=== PATIENT | female | born 1970 | race Two or more races ===

== ENCOUNTER 2020-11-15 20:48 | Inpatient (IN) ==
[2020-11-15] MEDS ORDERED: SODIUM CHLORIDE 0.9% 1,000 ML IV STA (21:31)
[2020-11-15] MEDS ORDERED: ENOXAPARIN 100 MG/ML SYRINGE SUBCUT STA (21:51)
[2020-11-15] MEDS ORDERED: ENOXAPARIN 120 MG/0.8 ML SYRINGE SUBCUT STA (21:55)
[2020-11-15] MEDS ORDERED: dilTIAZem Drip 125 MG/125 ML PREMIX IV SCH ×2 (22:00→23:00)
[2020-11-15 22:08] LABS: Basophils % 0.3 % (0.0-0.8); Hematocrit 46.6 VOL% (35.7-47.0); Hemoglobin 17.6 GM/DL (12.0-16.0); Immature Granulocytes % 0.8 %; Immature Granulocytes Absolute 0.08 #; Lymphocytes # 0.6 10*3/uL (1.4-4.0); Lymphocytes % 6.1 % (21.3-54.2); Mean Corpuscular HGB Conc 37.8 GM/DL (32-36); Mean Corpuscular Volume 77.8 FL (87-102); Mean Platelet Volume 11.4 FL (9.6-12.0); Monocytes % 5.9 % (1.7-12.7); NRBC # 0.02 10*3/uL; Neutrophils % 86.9 % (38.7-73.9); Platelet Count 225 T/CUMM (130-400); Red Blood Count 5.99 MC/CUMM (3.8-5.5); Red Cell Distribution Width 14.7 % (9.3-17.3); White Blood Count 9.8 T/CUMM (4-12)
[2020-11-15 22:15] LABS: INR 1.4; PT Patient Result 14.7 SECS (9.8-11.9)
[2020-11-15 22:19] LABS: ABG Base Excess -3.6 MMOL/L (-2.5-2.5); ABG PCO2 32.3 MM HG (35-48); ABG PH 7.409 (7.35-7.45); Allen Test Positive; Pt O2 Delivery Device Room Air
[2020-11-15 22:21] LABS: ABG Oxygen Saturation 95.9 % (95-100)
[2020-11-15 22:24] LABS: Bilirubin,Urine Negative (Negative); Blood, Urine Large mg/dL (Negative); Glucose,Urine (UA) >=500 mg/dL (Negative); Ketones,Urine Negative (Negative); Mucus,Urine Few /LPF (Occasional); Nitrite,Urine Negative (Negative); Protein,Urine 100 MG/DL; RBC,Urine 24 /HPF (0-4); Squamous Epithelial Cell,Urine Occasional /HPF (0-10); Urine Appearance CLOUDY (Clear); Urine Color Yellow (Yellow); Urine Specific Gravity 1.017 (1.001-1.035); WBC,Urine 1017 /HPF (0-6)
[2020-11-15] MEDS ORDERED: DEXTROSE 50% 25 GM/50 ML VIAL IV PRN ×3 (22:31→22:39)
[2020-11-15] MEDS ORDERED: GLUCAGON 1 MG VIAL IM PRN ×2 (22:31)
[2020-11-15 22:36] LABS: Alanine Aminotransferase 38 U/L (13-56); Albumin 1.5 G/DL (3.4-5.0); Alkaline Phosphatase 137 U/L (45-117); Aspartate Amino Transferase 116 U/L (0-37); Blood Urea Nitrogen 131 MG/DL (7-18); Calcium 8.2 MG/DL (8.5-10.1); Estimated Glom Filtration Rate 14 ML/MIN; Osmolality,Calculated 365.3 MOS/KG (273-304); Total Protein 7.2 G/DL (6.4-8.3)
[2020-11-15] MEDS ORDERED: SODIUM BICARB INJ 100 MEQ in STERILE WATER INJ 400 ML IV PRN (22:39)
[2020-11-15] MEDS ORDERED: SODIUM CHLORIDE 0.9% 1,000 ML IV ONE (22:39)
[2020-11-15] MEDS ORDERED: SODIUM PHOSPHATE INJ 28.3 MMOL in SODIUM CHLORIDE 0.9% 250 ML IV PRN (22:39)
[2020-11-15] MEDS ORDERED: MAGNESIUM SULF RIDER 2 GM in PREMIX 1 EACH IV PRN (22:39)
[2020-11-15] MEDS ORDERED: POTASSIUM CHLORIDE RIDER 10 MEQ in PREMIX 1 EACH IV PRN (22:39)
[2020-11-15] MEDS ORDERED: MAGNESIUM SULF RIDER 4 GM in PREMIX 1 EACH IV PRN (22:39)
[2020-11-15] MEDS ORDERED: INSULIN REGULAR 100 UNIT/ML IV ONE (22:39)
[2020-11-15] MEDS: INSULIN REGULAR DRIP 100 ML IV PRN (22:45)
[2020-11-15 22:46] LABS: Band Neutrophils 1 % (0-10); Lymphocytes 8 % (20-55); Nucleated Red Blood Cells 1 (0-5); Platelet Estimate Normal; Segmented Neutrophils 88 % (50-85); Total Cells Counted 100
[2020-11-15 22:47] LABS: Target Cells 2+
[2020-11-15 22:48] LABS: Microcytosis 2+; Polychromasia Slight
[2020-11-15 22:53] LABS: Glucose 867 MG/DL (74-106)
[2020-11-15 22:55] LABS: Barbiturates Screen,Urine Negative (Negative); Benzodiazepines Screen,Urine Negative (Negative); Cannabinoid Screen,Urine Negative (Negative); Opiate Screen,Urine Negative (Negative); Phencyclidine Screen,Urine Negative (Negative)
[2020-11-15] MEDS ORDERED: INSULIN REGULAR DRIP 100 ML IV SCH (23:00)
[2020-11-15] MEDS: cefTRIAXone 1,000 MG in SYRINGE 1 EACH IV SCH (23:50)
[2020-11-16] MEDS: SODIUM CHLORIDE 0.9% 1,000 ML IV SCH ×2 (00:21→05:00)
[2020-11-16] MEDS: ALBUTEROL/IPRATROPIUM 3 ML NEB RESP TX SCH ×4 (00:23→18:56)
[2020-11-16 00:31] LABS: Calcium 7.8 MG/DL (8.5-10.1); Osmolality,Calculated 370.1 MOS/KG (273-304)
[2020-11-16] MEDS ORDERED: DIGOXIN 0.5 MG/2 ML AMP IV ONE ×2 (02:53→09:00)
[2020-11-16 03:14] LABS: Calcium 7.7 MG/DL (8.5-10.1); Osmolality,Calculated 364.8 MOS/KG (273-304)
[2020-11-16] MEDS ORDERED: SODIUM CHLORIDE 0.9% 1,000 ML IV SCH (03:40)
[2020-11-16 04:16] LABS: Basophils % 0.2 % (0.0-0.8); Eosinophils % 0.1 % (0.00-10.9); Hematocrit 28.3 VOL% (35.7-47.0); Hemoglobin 10.6 GM/DL (12.0-16.0); Immature Granulocytes % 1.2 %; Immature Granulocytes Absolute 0.22 #; Lymphocytes % 5.4 % (21.3-54.2); Mean Corpuscular HGB Conc 37.5 GM/DL (32-36); Mean Corpuscular Volume 78.4 FL (87-102); Mean Platelet Volume 11.1 FL (9.6-12.0); Monocytes % 6.8 % (1.7-12.7); NRBC # 0.02 10*3/uL; Neutrophils % 86.3 % (38.7-73.9); Platelet Count 259 T/CUMM (130-400); Red Blood Count 3.61 MC/CUMM (3.8-5.5); Red Cell Distribution Width 14.4 % (9.3-17.3); White Blood Count 18.3 T/CUMM (4-12)
[2020-11-16 04:44] LABS: Calcium 7.8 MG/DL (8.5-10.1); Osmolality,Calculated 367.7 MOS/KG (273-304); Thyroid Stimulating Hormone 0.066 uIU/ml (0.358-3.74)
[2020-11-16 04:56] LABS: ABG HCO3 20.3 MMOL/L (20-26); ABG Oxygen Saturation 95.9 % (95-100); ABG PH 7.345 (7.35-7.45); ABG PO2 91.8 MM HG (80-95); ABG TCO2 18.2 MMOL/L (23-27); Allen Test Positive
[2020-11-16] MEDS: ACETAMINOPHEN 325 MG TABLET PO PRN (05:00)
[2020-11-16] MEDS ORDERED: METOPROLOL TARTRATE 5 MG/5 ML VIAL IV ONE (05:43)
[2020-11-16 06:02] LABS: Band Neutrophils 5 % (0-10); Hypochromasia 1+; Lymphocytes 5 % (20-55); Metamyelocytes 2 %; Myelocytes 1 %; Segmented Neutrophils 84 % (50-85); Target Cells 1+; Total Cells Counted 100
[2020-11-16 06:03] LABS: Microcytosis 1+; Platelet Estimate Normal
[2020-11-16 07:36] LABS: Calcium 7.6 MG/DL (8.5-10.1); Osmolality,Calculated 368.4 MOS/KG (273-304)
[2020-11-16] MEDS ORDERED: DIGOXIN 0.5 MG/2 ML AMP IV STA (08:03)
[2020-11-16] MEDS ORDERED: LACTATED RINGERS 1,000 ML IV ONE (08:11)
[2020-11-16] MEDS ORDERED: INSULIN REGULAR 100 UNIT/ML IV ONE (08:12)
[2020-11-16] MEDS ORDERED: LEVOFLOXACIN INJ 750 MG in PREMIX 1 EACH IV SCH (08:30)
[2020-11-16] MEDS: ENOXAPARIN 30 MG/0.3 ML SYRINGE SUBCUT SCH (08:45)
[2020-11-16] MEDS: PANTOPRAZOLE 40 MG TABLET PO SCH (08:45)
[2020-11-16] MEDS ORDERED: MOXIFLOXACIN 0.5% OPH SOLN 3 ML BOTTLE ONE (08:55)
[2020-11-16] MEDS ORDERED: LACTATED RINGERS 1,000 ML IV SCH (09:15)
[2020-11-16 09:48] LABS: Calcium 7.7 MG/DL (8.5-10.1); Osmolality,Calculated 369.3 MOS/KG (273-304)
[2020-11-16] MEDS: POTASSIUM CHLORIDE INJ 20 MEQ in LACTATED RINGERS 1,000 ML IV SCH (11:25)
[2020-11-16 15:40] LABS: Calcium 7.9 MG/DL (8.5-10.1); Osmolality,Calculated 348.3 MOS/KG (273-304)
[2020-11-16] MEDS ORDERED: SODIUM CHLORIDE 0.45% 1,000 ML IV SCH (15:40)
[2020-11-16] MEDS: INSULIN REGULAR DRIP 100 ML IV PRN (16:41)
[2020-11-16 19:59] LABS: Calcium 7.9 MG/DL (8.5-10.1)
[2020-11-16] MEDS ORDERED: DEXTROSE 50% 25 GM/50 ML SYRINGE IV ONE (23:30)
[2020-11-17] MEDS: ALBUTEROL/IPRATROPIUM 3 ML NEB RESP TX SCH ×4 (01:45→20:28)
[2020-11-17 05:35] LABS: Basophils % 0.1 % (0.0-0.8); Hemoglobin 10.8 GM/DL (12.0-16.0); Immature Granulocytes % 1.8 %; Immature Granulocytes Absolute 0.29 #; Mean Corpuscular HGB Conc 37.2 GM/DL (32-36); Mean Corpuscular Volume 79.7 FL (87-102); Mean Platelet Volume 11.1 FL (9.6-12.0); Neutrophils % 88.1 % (38.7-73.9); Platelet Count 212 T/CUMM (130-400); Red Blood Count 3.64 MC/CUMM (3.8-5.5); Red Cell Distribution Width 14.2 % (9.3-17.3); White Blood Count 16.4 T/CUMM (4-12)
[2020-11-17] MEDS: cefTRIAXone 1,000 MG in SYRINGE 1 EACH IV SCH ×2 (05:40→22:18)
[2020-11-17 06:20] LABS: Lymphocytes 11 % (20-55); Metamyelocytes 1 %; Platelet Estimate Normal; Segmented Neutrophils 84 % (50-85); Total Cells Counted 100
[2020-11-17 06:21] LABS: Hypochromasia Slight; Microcytosis Slight
[2020-11-17] MEDS: INSULIN REGULAR DRIP 100 ML IV PRN (06:27)
[2020-11-17 06:30] LABS: Calcium 7.6 MG/DL (8.5-10.1); Osmolality,Calculated 340.2 MOS/KG (273-304)
[2020-11-17] MEDS ORDERED: DEXTROSE 50% 25 GM/50 ML VIAL IV PRN (07:45)
[2020-11-17] MEDS ORDERED: GLUCAGON 1 MG VIAL IM PRN (07:45)
[2020-11-17] MEDS: POTASSIUM CHLORIDE 20 MEQ TABLET PO SCH ×4 (09:15→22:18)
[2020-11-17] MEDS: INSULIN NPH 100 UNIT/ML SUBCUT SCH ×2 (09:15→15:44)
[2020-11-17] MEDS: SODIUM CHLOR 0.45% KCL 20 MEQ 20 MEQ/1,000 ML BAG IV SCH ×2 (10:00→15:45)
[2020-11-17] MEDS: POTASSIUM CHLORIDE INJ 20 MEQ in LACTATED RINGERS 1,000 ML IV SCH (11:28)
[2020-11-17] MEDS: INSULIN LISPRO 100 UNIT/ML SUBCUT SCH ×2 (12:21→15:44)
[2020-11-17] MEDS: ENOXAPARIN 30 MG/0.3 ML SYRINGE SUBCUT SCH (12:22)
[2020-11-17] MEDS: PANTOPRAZOLE 40 MG TABLET PO SCH (12:22)
[2020-11-17] MEDS: carvediloL 6.25 MG TABLET PO SCH ×2 (12:22→22:18)
[2020-11-17] MEDS: INSULIN REGULAR 100 UNIT/ML SUBCUT SCH ×4 (12:22→23:02)
[2020-11-17] MEDS ORDERED: INFLUENZA VIRUS VACCINE 0.5 ML SYRINGE IM ONE (12:40)
[2020-11-17] MEDS ORDERED: INSULIN NPH 100 UNIT/ML SUBCUT SCH (16:49)
[2020-11-18] MEDS: SODIUM CHLOR 0.45% KCL 20 MEQ 20 MEQ/1,000 ML BAG IV SCH ×4 (00:08→16:16)
[2020-11-18] MEDS: ALBUTEROL/IPRATROPIUM 3 ML NEB RESP TX SCH ×4 (00:52→20:50)
[2020-11-18] MEDS: INSULIN REGULAR 100 UNIT/ML SUBCUT SCH ×6 (03:18→22:00)
[2020-11-18] MEDS: ONDANSETRON 4 MG/2 ML VIAL IV PRN (03:18)
[2020-11-18 06:37] LABS: Osmolality,Calculated 312.6 MOS/KG (273-304)
[2020-11-18] MEDS ORDERED: LEVOFLOXACIN 500 MG TABLET PO SCH (09:00)
[2020-11-18] MEDS: INSULIN LISPRO 100 UNIT/ML SUBCUT SCH ×3 (09:45→15:32)
[2020-11-18] MEDS: PANTOPRAZOLE 40 MG TABLET PO SCH (09:46)
[2020-11-18] MEDS: carvediloL 6.25 MG TABLET PO SCH ×2 (09:46→21:37)
[2020-11-18] MEDS: ENOXAPARIN 40 MG/0.4 ML SYRINGE SUBCUT SCH (11:21)
[2020-11-18] MEDS: INSULIN NPH 100 UNIT/ML SUBCUT SCH (15:32)
[2020-11-18] MEDS: cefTRIAXone 2,000 MG in SYRINGE 1 EACH IV SCH (16:15)
[2020-11-18] MEDS ORDERED: metFORMIN 500 MG TABLET PO SCH (17:00)
[2020-11-18] MEDS: LACTOBACILLUS RHAMNOSUS GG CAPSULE PO SCH (21:37)
[2020-11-19] MEDS: SODIUM CHLOR 0.45% KCL 20 MEQ 20 MEQ/1,000 ML BAG IV SCH ×3 (00:23→08:14)
[2020-11-19] MEDS: ACETAMINOPHEN 325 MG TABLET PO PRN (00:45)
[2020-11-19] MEDS: ALBUTEROL/IPRATROPIUM 3 ML NEB RESP TX SCH ×4 (01:30→20:42)
[2020-11-19] MEDS: INSULIN REGULAR 100 UNIT/ML SUBCUT SCH ×6 (02:25→23:23)
[2020-11-19 05:50] LABS: Basophils % 0.1 % (0.0-0.8); Eosinophils % 0.1 % (0.00-10.9); Hematocrit 24.8 VOL% (35.7-47.0); Hemoglobin 9.1 GM/DL (12.0-16.0); Immature Granulocytes % 2.6 %; Lymphocytes # 1.6 10*3/uL (1.4-4.0); Lymphocytes % 9.9 % (21.3-54.2); Mean Corpuscular HGB Conc 36.7 GM/DL (32-36); Mean Corpuscular Volume 80.5 FL (87-102); Mean Platelet Volume 12.1 FL (9.6-12.0); Monocytes % 5.7 % (1.7-12.7); NRBC # 0.02 10*3/uL; Neutrophils % 81.6 % (38.7-73.9); Platelet Count 141 T/CUMM (130-400); Red Blood Count 3.08 MC/CUMM (3.8-5.5); Red Cell Distribution Width 14.6 % (9.3-17.3); White Blood Count 15.7 T/CUMM (4-12)
[2020-11-19 06:04] LABS: Calcium 7.9 MG/DL (8.5-10.1); Osmolality,Calculated 302.6 MOS/KG (273-304)
[2020-11-19 07:14] LABS: Band Neutrophils 2 % (0-10); Eosinophils 2 % (0-10); Lymphocytes 12 % (20-55); Metamyelocytes 2 %; Segmented Neutrophils 75 % (50-85); Total Cells Counted 100
[2020-11-19 07:15] LABS: Hypochromasia 1+
[2020-11-19 07:17] LABS: Microcytosis 1+; Polychromasia Slight; Target Cells 2+
[2020-11-19 07:18] LABS: Platelet Estimate Adequate
[2020-11-19] MEDS: carvediloL 6.25 MG TABLET PO SCH ×2 (10:14→21:23)
[2020-11-19] MEDS: PANTOPRAZOLE 40 MG TABLET PO SCH (10:14)
[2020-11-19] MEDS: INSULIN NPH 100 UNIT/ML SUBCUT SCH ×2 (10:14→16:34)
[2020-11-19] MEDS: INSULIN LISPRO 100 UNIT/ML SUBCUT SCH ×3 (10:14→16:34)
[2020-11-19] MEDS: LACTOBACILLUS RHAMNOSUS GG CAPSULE PO SCH ×2 (10:14→21:23)
[2020-11-19] MEDS: ASPIRIN CHEW 81 MG TABLET PO SCH (10:15)
[2020-11-19] MEDS: ENOXAPARIN 40 MG/0.4 ML SYRINGE SUBCUT SCH (11:52)
[2020-11-19] MEDS ORDERED: SODIUM CHLORIDE 0.9% 500 ML IV ONE (12:53)
[2020-11-19] MEDS: SODIUM CHLORIDE 0.9% 1,000 ML IV SCH (14:27)
[2020-11-19] MEDS: cefTRIAXone 2,000 MG in SYRINGE 1 EACH IV SCH (16:33)
[2020-11-20] MEDS: INSULIN REGULAR 100 UNIT/ML SUBCUT SCH ×6 (02:48→20:35)
[2020-11-20] MEDS: SODIUM CHLORIDE 0.9% 1,000 ML IV SCH (04:47)
[2020-11-20] MEDS: ALBUTEROL/IPRATROPIUM 3 ML NEB RESP TX SCH ×2 (07:01→07:45)
[2020-11-20 08:04] LABS: Basophils % 0.1 % (0.0-0.8); Eosinophils # 0.1 10*3/uL (0.0-0.87); Eosinophils % 0.4 % (0.00-10.9); Hematocrit 24.1 VOL% (35.7-47.0); Hemoglobin 8.8 GM/DL (12.0-16.0); Immature Granulocytes % 3.4 %; Immature Granulocytes Absolute 0.58 #; Lymphocytes # 1.3 10*3/uL (1.4-4.0); Lymphocytes % 7.8 % (21.3-54.2); Mean Corpuscular HGB Conc 36.5 GM/DL (32-36); Mean Corpuscular Volume 81.4 FL (87-102); Mean Platelet Volume 11.5 FL (9.6-12.0); Monocytes % 4.3 % (1.7-12.7); Platelet Count 150 T/CUMM (130-400); Red Blood Count 2.96 MC/CUMM (3.8-5.5); Red Cell Distribution Width 15.2 % (9.3-17.3)
[2020-11-20 08:24] LABS: Lymphocytes 6 % (20-55); Platelet Estimate Adequate; Segmented Neutrophils 91 % (50-85); Total Cells Counted 100
[2020-11-20 08:25] LABS: Hypochromasia 1+; Microcytosis Slight; Target Cells Few
[2020-11-20 08:28] LABS: Calcium 7.6 MG/DL (8.5-10.1); Osmolality,Calculated 293.7 MOS/KG (273-304)
[2020-11-20] MEDS: INSULIN NPH 100 UNIT/ML SUBCUT SCH ×2 (08:35→15:48)
[2020-11-20] MEDS: ASPIRIN CHEW 81 MG TABLET PO SCH (09:57)
[2020-11-20] MEDS: carvediloL 6.25 MG TABLET PO SCH ×2 (09:57→20:35)
[2020-11-20] MEDS: PANTOPRAZOLE 40 MG TABLET PO SCH (09:57)
[2020-11-20] MEDS: LACTOBACILLUS RHAMNOSUS GG CAPSULE PO SCH ×2 (09:57→20:35)
[2020-11-20] MEDS ORDERED: ALBUTEROL/IPRATROPIUM 3 ML NEB RESP TX PRN (10:20)
[2020-11-20] MEDS: ENOXAPARIN 40 MG/0.4 ML SYRINGE SUBCUT SCH (13:33)
[2020-11-20 15:08] LABS: Barbiturates Screen,Urine Negative (Negative); Benzodiazepines Screen,Urine Negative (Negative); Cannabinoid Screen,Urine Negative (Negative); Opiate Screen,Urine Negative (Negative); Phencyclidine Screen,Urine Negative (Negative)
[2020-11-20] MEDS: cefTRIAXone 2,000 MG in SYRINGE 1 EACH IV SCH (18:14)
[2020-11-20] MEDS ORDERED: PHENOL 1.4% THROAT SPRAY 177 ML BOTTLE PO PRN (23:22)
[2020-11-21] MEDS: ACETAMINOPHEN 325 MG TABLET PO PRN (00:54)
[2020-11-21 06:34] LABS: Basophils % 0.1 % (0.0-0.8); Eosinophils # 0.1 10*3/uL (0.0-0.87); Eosinophils % 0.7 % (0.00-10.9); Hemoglobin 7.8 GM/DL (12.0-16.0); Immature Granulocytes Absolute 0.43 #; Lymphocytes # 1.5 10*3/uL (1.4-4.0); Lymphocytes % 10.2 % (21.3-54.2); Mean Corpuscular HGB Conc 35.5 GM/DL (32-36); Mean Corpuscular Volume 81.5 FL (87-102); Mean Platelet Volume 11.2 FL (9.6-12.0); Monocytes % 4.8 % (1.7-12.7); Neutrophils % 81.2 % (38.7-73.9); Platelet Count 176 T/CUMM (130-400); Red Cell Distribution Width 15.1 % (9.3-17.3); White Blood Count 14.3 T/CUMM (4-12)
[2020-11-21 06:56] LABS: Band Neutrophils 1 % (0-10); Eosinophils 1 % (0-10); Hypochromasia 1+; Lymphocytes 8 % (20-55); Microcytosis 1+; Myelocytes 1 %; Segmented Neutrophils 87 % (50-85); Target Cells Few; Total Cells Counted 100
[2020-11-21 06:57] LABS: Calcium 7.6 MG/DL (8.5-10.1); Osmolality,Calculated 290.7 MOS/KG (273-304); Platelet Estimate Adequate
[2020-11-21] MEDS: INSULIN REGULAR 100 UNIT/ML SUBCUT SCH ×4 (07:04→21:24)
[2020-11-21 07:06] LABS: Free T4 (Free Thyroxine) 1.04 NG/DL (0.76-1.46); Thyroid Stimulating Hormone 0.761 uIU/ml (0.358-3.74)
[2020-11-21] MEDS ORDERED: MAGNESIUM SULF RIDER 2 GM in PREMIX 1 EACH IV ONE (07:30)
[2020-11-21] MEDS: INSULIN NPH 100 UNIT/ML SUBCUT SCH ×2 (08:04→15:41)
[2020-11-21] MEDS: carvediloL 6.25 MG TABLET PO SCH ×2 (08:54→21:24)
[2020-11-21] MEDS: LACTOBACILLUS RHAMNOSUS GG CAPSULE PO SCH ×2 (08:54→21:24)
[2020-11-21] MEDS: ASPIRIN CHEW 81 MG TABLET PO SCH (08:54)
[2020-11-21] MEDS: ERGOCALCIFEROL 50,000 UNIT CAPSULE PO SCH (10:05)
[2020-11-21 10:11] LABS: Folate 3.5 NG/ML (5.4-24.0)
[2020-11-21] MEDS: FOLIC ACID 1 MG TABLET PO SCH (12:24)
[2020-11-21] MEDS: PANTOPRAZOLE 40 MG TABLET PO SCH (12:24)
[2020-11-21] MEDS: cefTRIAXone 2,000 MG in SYRINGE 1 EACH IV SCH (16:31)
[2020-11-21] MEDS: APIXABAN 5 MG TABLET PO SCH (21:24)
[2020-11-22 05:38] LABS: Basophils % 0.1 % (0.0-0.8); Eosinophils # 0.1 10*3/uL (0.0-0.87); Eosinophils % 0.6 % (0.00-10.9); Hematocrit 23.1 VOL% (35.7-47.0); Hemoglobin 8.2 GM/DL (12.0-16.0); Immature Granulocytes % 2.5 %; Immature Granulocytes Absolute 0.35 #; Lymphocytes # 1.6 10*3/uL (1.4-4.0); Lymphocytes % 11.4 % (21.3-54.2); Mean Corpuscular HGB Conc 35.5 GM/DL (32-36); Mean Corpuscular Volume 82.2 FL (87-102); Mean Platelet Volume 10.8 FL (9.6-12.0); Monocytes % 5.7 % (1.7-12.7); Neutrophils % 79.7 % (38.7-73.9); Platelet Count 238 T/CUMM (130-400); Red Blood Count 2.81 MC/CUMM (3.8-5.5); Red Cell Distribution Width 14.9 % (9.3-17.3); White Blood Count 13.9 T/CUMM (4-12)
[2020-11-22 06:05] LABS: Band Neutrophils 1 % (0-10); Eosinophils 1 % (0-10); Lymphocytes 7 % (20-55); Platelet Estimate Adequate; Segmented Neutrophils 89 % (50-85); Total Cells Counted 100
[2020-11-22 06:06] LABS: Hypochromasia 1+; Microcytosis 1+
[2020-11-22 06:12] LABS: % Iron Saturation 11.6 % (18-50); Calcium 7.8 MG/DL (8.5-10.1); Ferritin 767.6 ng/ml (8-252); Osmolality,Calculated 285.8 MOS/KG (273-304)
[2020-11-22 06:43] LABS: Folate 6.6 NG/ML (5.4-24.0)
[2020-11-22] MEDS ORDERED: POTASSIUM CHLORIDE 20 MEQ TABLET PO ONE ×3 (07:17→12:00)
[2020-11-22] MEDS ORDERED: MAGNESIUM SULF RIDER 2 GM in PREMIX 1 EACH IV ONE (08:00)
[2020-11-22] MEDS: PANTOPRAZOLE 40 MG TABLET PO SCH (10:23)
[2020-11-22] MEDS: ASPIRIN CHEW 81 MG TABLET PO SCH (10:23)
[2020-11-22] MEDS: carvediloL 6.25 MG TABLET PO SCH ×2 (10:23→21:03)
[2020-11-22] MEDS: FOLIC ACID 1 MG TABLET PO SCH (10:24)
[2020-11-22] MEDS: LACTOBACILLUS RHAMNOSUS GG CAPSULE PO SCH ×2 (10:24→21:03)
[2020-11-22] MEDS: APIXABAN 5 MG TABLET PO SCH ×2 (10:24→21:03)
[2020-11-22] MEDS ORDERED: FUROSEMIDE 40 MG/4 ML VIAL IV ONE (10:30)
[2020-11-22] MEDS: INSULIN REGULAR 100 UNIT/ML SUBCUT SCH ×4 (11:02→21:03)
[2020-11-22] MEDS: INSULIN NPH 100 UNIT/ML SUBCUT SCH (11:18)
[2020-11-22] MEDS: LOSARTAN 25 MG TABLET PO SCH (15:37)
[2020-11-22] MEDS ORDERED: INSULIN NPH 100 UNIT/ML SUBCUT SCH (16:30)
[2020-11-22] MEDS: cefTRIAXone 2,000 MG in SYRINGE 1 EACH IV SCH (17:20)
[2020-11-23] MEDS: ACETAMINOPHEN 325 MG TABLET PO PRN (02:18)
[2020-11-23 05:24] LABS: Basophils % 0.2 % (0.0-0.8); Eosinophils # 0.1 10*3/uL (0.0-0.87); Eosinophils % 0.6 % (0.00-10.9); Hematocrit 21.9 VOL% (35.7-47.0); Hemoglobin 7.7 GM/DL (12.0-16.0); Immature Granulocytes % 1.7 %; Immature Granulocytes Absolute 0.21 #; Lymphocytes # 1.6 10*3/uL (1.4-4.0); Lymphocytes % 13.2 % (21.3-54.2); Mean Corpuscular HGB Conc 35.2 GM/DL (32-36); Mean Corpuscular Volume 81.7 FL (87-102); Mean Platelet Volume 10.8 FL (9.6-12.0); Monocytes % 6.9 % (1.7-12.7); Neutrophils % 77.4 % (38.7-73.9); Platelet Count 338 T/CUMM (130-400); Red Blood Count 2.68 MC/CUMM (3.8-5.5); White Blood Count 12.1 T/CUMM (4-12)
[2020-11-23 05:39] LABS: Calcium 7.7 MG/DL (8.5-10.1); Osmolality,Calculated 282.8 MOS/KG (273-304)
[2020-11-23 05:51] LABS: Hypochromasia 2+; Microcytosis 1+; Platelet Estimate Adequate
[2020-11-23] MEDS: INSULIN REGULAR 100 UNIT/ML SUBCUT SCH ×4 (07:05→20:41)
[2020-11-23] MEDS: INSULIN NPH 100 UNIT/ML SUBCUT SCH (07:05)
[2020-11-23] MEDS ORDERED: INSULIN NPH 100 UNIT/ML SUBCUT SCH ×2 (07:14)
[2020-11-23] MEDS: LOSARTAN 25 MG TABLET PO SCH (09:44)
[2020-11-23] MEDS: PANTOPRAZOLE 40 MG TABLET PO SCH (09:44)
[2020-11-23] MEDS: carvediloL 6.25 MG TABLET PO SCH ×2 (09:45→20:41)
[2020-11-23] MEDS: APIXABAN 5 MG TABLET PO SCH (09:45)
[2020-11-23] MEDS: LACTOBACILLUS RHAMNOSUS GG CAPSULE PO SCH ×2 (09:45→20:41)
[2020-11-23] MEDS: FOLIC ACID 1 MG TABLET PO SCH (09:45)
[2020-11-23] MEDS: ASPIRIN CHEW 81 MG TABLET PO SCH (09:45)
[2020-11-23] MEDS ORDERED: POTASSIUM CHLORIDE 20 MEQ TABLET PO ONE (10:30)
[2020-11-23] MEDS ORDERED: MAGNESIUM SULF RIDER 2 GM in PREMIX 1 EACH IV ONE (10:30)
[2020-11-23] MEDS: FERROUS SULFATE 325 MG TABLET PO SCH (16:39)
[2020-11-23] MEDS: INSULIN NPH/REGULAR 70/30 100 UNIT/ML SUBCUT SCH (16:39)
[2020-11-23] MEDS: cefTRIAXone 2,000 MG in SYRINGE 1 EACH IV SCH (17:24)
[2020-11-23] MEDS: PANTOPRAZOLE 40 MG VIAL IV SCH (20:43)
[2020-11-24 05:55] LABS: Basophils % 0.3 % (0.0-0.8); Eosinophils # 0.1 10*3/uL (0.0-0.87); Eosinophils % 0.5 % (0.00-10.9); Hemoglobin 7.5 GM/DL (12.0-16.0); Immature Granulocytes % 1.1 %; Immature Granulocytes Absolute 0.12 #; Lymphocytes # 1.8 10*3/uL (1.4-4.0); Lymphocytes % 16.3 % (21.3-54.2); Mean Corpuscular HGB Conc 35.7 GM/DL (32-36); Mean Platelet Volume 10.4 FL (9.6-12.0); Monocytes % 6.4 % (1.7-12.7); Neutrophils % 75.4 % (38.7-73.9); Platelet Count 397 T/CUMM (130-400); Red Blood Count 2.53 MC/CUMM (3.8-5.5); Red Cell Distribution Width 15.1 % (9.3-17.3); White Blood Count 10.9 T/CUMM (4-12)
[2020-11-24 06:13] LABS: Calcium 7.6 MG/DL (8.5-10.1)
[2020-11-24] MEDS ORDERED: MAGNESIUM SULF RIDER 2 GM in PREMIX 1 EACH IV ONE (07:30)
[2020-11-24] MEDS: INSULIN REGULAR 100 UNIT/ML SUBCUT SCH ×4 (10:11→20:06)
[2020-11-24] MEDS: INSULIN NPH/REGULAR 70/30 100 UNIT/ML SUBCUT SCH ×2 (10:11→16:12)
[2020-11-24] MEDS: FOLIC ACID 1 MG TABLET PO SCH (10:12)
[2020-11-24] MEDS: carvediloL 6.25 MG TABLET PO SCH ×2 (10:12→20:07)
[2020-11-24] MEDS: LOSARTAN 25 MG TABLET PO SCH (10:12)
[2020-11-24] MEDS: PANTOPRAZOLE 40 MG VIAL IV SCH ×2 (10:12→20:06)
[2020-11-24] MEDS: FERROUS SULFATE 325 MG TABLET PO SCH (10:12)
[2020-11-24] MEDS: ASPIRIN CHEW 81 MG TABLET PO SCH (10:12)
[2020-11-24] MEDS: LACTOBACILLUS RHAMNOSUS GG CAPSULE PO SCH ×2 (10:12→20:06)
[2020-11-24 10:19] LABS: INR 1.2; PT Patient Result 12.3 SECS (9.8-11.9); Partial Thromboplastin Time 36.7 SECS (23.9-33.8)
[2020-11-24] MEDS: ACETAMINOPHEN 325 MG TABLET PO PRN ×2 (11:12→20:07)
[2020-11-24] MEDS: cefTRIAXone 2,000 MG in SYRINGE 1 EACH IV SCH (16:38)
[2020-11-25] MEDS: ONDANSETRON 4 MG/2 ML VIAL IV PRN (04:48)
[2020-11-25 06:38] LABS: Basophils % 0.4 % (0.0-0.8); Eosinophils # 0.1 10*3/uL (0.0-0.87); Eosinophils % 0.6 % (0.00-10.9); Hematocrit 21.8 VOL% (35.7-47.0); Hemoglobin 7.5 GM/DL (12.0-16.0); Immature Granulocytes % 0.9 %; Lymphocytes # 1.6 10*3/uL (1.4-4.0); Lymphocytes % 14.4 % (21.3-54.2); Mean Corpuscular HGB Conc 34.4 GM/DL (32-36); Mean Corpuscular Volume 83.8 FL (87-102); Mean Platelet Volume 9.8 FL (9.6-12.0); Monocytes % 6.1 % (1.7-12.7); Neutrophils % 77.6 % (38.7-73.9); Platelet Count 492 T/CUMM (130-400); Red Cell Distribution Width 15.6 % (9.3-17.3); White Blood Count 11.1 T/CUMM (4-12)
[2020-11-25 06:53] LABS: Alanine Aminotransferase 54 U/L (13-56); Albumin 1.4 G/DL (3.4-5.0); Alkaline Phosphatase 106 U/L (45-117); Aspartate Amino Transferase 47 U/L (0-37); Bilirubin,Total < 0.39 MG/DL (0.2-1.0); Blood Urea Nitrogen 9 MG/DL (7-18); Calcium 7.5 MG/DL (8.5-10.1); Estimated Glom Filtration Rate 125 ML/MIN; Glucose 136 MG/DL (74-106); Osmolality,Calculated 281.3 MOS/KG (273-304); Total Protein 5.7 G/DL (6.4-8.3)
[2020-11-25 06:54] LABS: % Iron Saturation 12.4 % (18-50)
[2020-11-25] MEDS: INSULIN NPH/REGULAR 70/30 100 UNIT/ML SUBCUT SCH ×2 (08:05→16:11)
[2020-11-25] MEDS: ACETAMINOPHEN 325 MG TABLET PO PRN (08:05)
[2020-11-25] MEDS: INSULIN REGULAR 100 UNIT/ML SUBCUT SCH ×4 (08:06→20:18)
[2020-11-25] MEDS: carvediloL 6.25 MG TABLET PO SCH ×2 (09:33→20:18)
[2020-11-25] MEDS: FOLIC ACID 1 MG TABLET PO SCH (09:33)
[2020-11-25] MEDS: LOSARTAN 25 MG TABLET PO SCH (09:33)
[2020-11-25] MEDS: LACTOBACILLUS RHAMNOSUS GG CAPSULE PO SCH ×2 (09:33→20:18)
[2020-11-25] MEDS: PANTOPRAZOLE 40 MG VIAL IV SCH ×2 (09:37→20:18)
[2020-11-25] MEDS: cefTRIAXone 2,000 MG in SYRINGE 1 EACH IV SCH (16:24)
[2020-11-26 04:10] LABS: Basophils % 0.4 % (0.0-0.8); Eosinophils # 0.1 10*3/uL (0.0-0.87); Eosinophils % 0.7 % (0.00-10.9); Hemoglobin 7.2 GM/DL (12.0-16.0); Immature Granulocytes % 0.7 %; Immature Granulocytes Absolute 0.07 #; Lymphocytes # 1.5 10*3/uL (1.4-4.0); Mean Corpuscular HGB Conc 34.3 GM/DL (32-36); Mean Platelet Volume 9.3 FL (9.6-12.0); Monocytes % 7.6 % (1.7-12.7); Neutrophils % 74.6 % (38.7-73.9); Platelet Count 457 T/CUMM (130-400); Red Cell Distribution Width 15.1 % (9.3-17.3); White Blood Count 9.6 T/CUMM (4-12)
[2020-11-26 04:50] LABS: Calcium 7.4 MG/DL (8.5-10.1); Osmolality,Calculated 275.5 MOS/KG (273-304)
[2020-11-26] MEDS ORDERED: SODIUM CHLORIDE 0.9% 1,000 ML IV PRN (07:10)
[2020-11-26] MEDS: INSULIN NPH/REGULAR 70/30 100 UNIT/ML SUBCUT SCH ×2 (08:57→16:30)
[2020-11-26] MEDS: INSULIN REGULAR 100 UNIT/ML SUBCUT SCH ×4 (08:57→20:31)
[2020-11-26] MEDS: LOSARTAN 25 MG TABLET PO SCH (08:58)
[2020-11-26] MEDS: LACTOBACILLUS RHAMNOSUS GG CAPSULE PO SCH ×2 (08:58→20:29)
[2020-11-26] MEDS: FOLIC ACID 1 MG TABLET PO SCH (08:59)
[2020-11-26] MEDS: carvediloL 6.25 MG TABLET PO SCH ×2 (08:59→20:31)
[2020-11-26] MEDS: PANTOPRAZOLE 40 MG VIAL IV SCH ×2 (09:02→20:29)
[2020-11-26 15:51] LABS: Hematocrit 25.7 VOL% (35.7-47.0); Hemoglobin 8.6 GM/DL (12.0-16.0)
[2020-11-26] MEDS: cefTRIAXone 2,000 MG in SODIUM CHLORIDE 0.9% 100 ML IV SCH (16:34)
[2020-11-26] MEDS: ACETAMINOPHEN 325 MG TABLET PO PRN (20:30)
[2020-11-27 06:22] LABS: Basophils % 0.5 % (0.0-0.8); Eosinophils # 0.1 10*3/uL (0.0-0.87); Eosinophils % 0.7 % (0.00-10.9); Hemoglobin 8.8 GM/DL (12.0-16.0); Immature Granulocytes % 0.9 %; Immature Granulocytes Absolute 0.08 #; Lymphocytes # 1.3 10*3/uL (1.4-4.0); Lymphocytes % 15.1 % (21.3-54.2); Mean Corpuscular HGB Conc 35.2 GM/DL (32-36); Mean Corpuscular Volume 83.9 FL (87-102); Mean Platelet Volume 9.4 FL (9.6-12.0); Monocytes % 8.1 % (1.7-12.7); Neutrophils % 74.7 % (38.7-73.9); Platelet Count 441 T/CUMM (130-400); Red Blood Count 2.98 MC/CUMM (3.8-5.5); Red Cell Distribution Width 15.2 % (9.3-17.3); White Blood Count 8.8 T/CUMM (4-12)
[2020-11-27 06:38] LABS: Calcium 7.8 MG/DL (8.5-10.1); Osmolality,Calculated 278.5 MOS/KG (273-304)
[2020-11-27] MEDS: carvediloL 6.25 MG TABLET PO SCH ×2 (08:36→21:55)
[2020-11-27] MEDS: LOSARTAN 25 MG TABLET PO SCH (08:36)
[2020-11-27] MEDS: INSULIN REGULAR 100 UNIT/ML SUBCUT SCH ×4 (08:36→21:56)
[2020-11-27] MEDS: INSULIN NPH/REGULAR 70/30 100 UNIT/ML SUBCUT SCH ×2 (08:37→16:17)
[2020-11-27] MEDS: PANTOPRAZOLE 40 MG VIAL IV SCH ×2 (08:40→21:56)
[2020-11-27] MEDS: FOLIC ACID 1 MG TABLET PO SCH ×2 (11:08→11:11)
[2020-11-27] MEDS: LACTOBACILLUS RHAMNOSUS GG CAPSULE PO SCH ×3 (11:08→21:55)
[2020-11-27] MEDS: cefTRIAXone 2,000 MG in SODIUM CHLORIDE 0.9% 100 ML IV SCH (16:19)
[2020-11-27] MEDS: DEXAMETHASONE 4 MG TABLET PO SCH (17:06)
[2020-11-27] MEDS: FERROUS SULFATE 325 MG TABLET PO SCH ×3 (19:17→19:33)
[2020-11-27] MEDS: ASCORBIC ACID 500 MG TABLET PO SCH (21:55)
[2020-11-28 05:02] LABS: Basophils % 0.4 % (0.0-0.8); Hematocrit 23.7 VOL% (35.7-47.0); Hemoglobin 8.4 GM/DL (12.0-16.0); Immature Granulocytes % 0.8 %; Immature Granulocytes Absolute 0.04 #; Lymphocytes % 19.8 % (21.3-54.2); Mean Corpuscular HGB Conc 35.4 GM/DL (32-36); Mean Corpuscular Volume 82.6 FL (87-102); Mean Platelet Volume 8.9 FL (9.6-12.0); Monocytes % 3.2 % (1.7-12.7); Neutrophils % 75.8 % (38.7-73.9); Platelet Count 397 T/CUMM (130-400); Red Blood Count 2.87 MC/CUMM (3.8-5.5); Red Cell Distribution Width 14.7 % (9.3-17.3); White Blood Count 5.3 T/CUMM (4-12)
[2020-11-28 05:25] LABS: Osmolality,Calculated 278.7 MOS/KG (273-304)
[2020-11-28 05:28] LABS: Lymphocytes 16 % (20-55); Segmented Neutrophils 80 % (50-85); Total Cells Counted 100
[2020-11-28 05:29] LABS: Hypochromasia 1+; Microcytosis 1+; Platelet Estimate Adequate
[2020-11-28] MEDS: INSULIN NPH/REGULAR 70/30 100 UNIT/ML SUBCUT SCH (08:13)
[2020-11-28] MEDS: LOSARTAN 25 MG TABLET PO SCH (08:14)
[2020-11-28] MEDS: carvediloL 6.25 MG TABLET PO SCH (08:14)
[2020-11-28] MEDS: DEXAMETHASONE 4 MG TABLET PO SCH (08:14)
[2020-11-28] MEDS: FOLIC ACID 1 MG TABLET PO SCH (08:14)
[2020-11-28] MEDS: ASCORBIC ACID 500 MG TABLET PO SCH (08:14)
[2020-11-28] MEDS: PANTOPRAZOLE 40 MG VIAL IV SCH (08:14)
[2020-11-28] MEDS: LACTOBACILLUS RHAMNOSUS GG CAPSULE PO SCH (08:14)
[2020-11-28] MEDS: INSULIN REGULAR 100 UNIT/ML SUBCUT SCH ×2 (09:19→12:22)
[2020-11-28] MEDS: ERGOCALCIFEROL 50,000 UNIT CAPSULE PO SCH (09:19)
[2020-11-28 14:09] VITALS: BP 105/47
== END 2020-11-28 14:12 | disposition swing bed (61) | DRG 637 ==
LOC: N.ED 20:48 → SUATTDRO 22:31 → N.EDINP 22:31 → N.3E 11-17 11:26 → N.2E 11-27 12:05
PROVIDERS: ADMIT Internal Medicine; ATTEND Internal Medicine